=== PATIENT | female | born 1970 | race Caucasian/White ===

== ENCOUNTER 2018-11-02 09:37 | Emergency (ER) | payer OTHER ==
[~2018-11-02] VITALS: Ht 165.1 cm; Wt 136.1 kg
[~2018-11-02 09:37] MED LIST: BACTRIM DS TAB1 EACH PO; FISH OIL 1,0001 EAC9; MULTIVITAMINS1 EAC7; NORCO 5-325 TA1 EACH PO
[2018-11-02] MEDS ORDERED: BACTRIM DS TAB1 EACH PO (11:26)
[2018-11-02 11:35] VITALS: BP 124/79
== END 2018-11-02 11:35 | disposition left against medical advice (07) ==
LOC: ER 09:37
DX: N61.1 Abscess of the breast and nipple (principal)